=== PATIENT | male | born 1945 | race Caucasian/White ===

== ENCOUNTER 2018-08-06 14:15 | Emergency (ER) | payer OTHER ==
[2018-08-06 14:22] VITALS: BMI 27.8
[2018-08-06] MEDS ORDERED: SODIUM CHLORIDE 1,000 ML IV STA (15:44)
[2018-08-06] MEDS ORDERED: ACETAMINOPHEN 1000 MG/100 ML VIAL (NON FORMULARY) IVPB ONE (15:44)
[2018-08-06 16:14] LABS: BASO % 0.6 % (0-2.0); EOS % 1.1 % (0-4.5); HEMATOCRIT 40.9 % (35.4-49); HEMOGLOBIN 13.9 GM/dL (11.7-16.9); LYMPH % 29.9 % (8-40); MCH 32.2 pg (25.7-33.7); MEAN CELL VOLUME 94.6 fl (80-96); MONO % 9.5 % (3.8-10.2); NEUT % 58.9 % (42.8-82.8); PLATELET COUNT 148 K/MM3 (134-434); RBC 4.32 M/mm3 (4.00-5.60); RDW 12.8 % (11.9-15.9); WHITE BLOOD COUNT 5.1 K/mm3 (4.0-10.0)
[2018-08-06 16:27] LABS: INR 1.01 (0.83-1.09); PROTHROMBIN TIME (PATIENT) 11.9 SEC (9.7-13.0)
[2018-08-06 16:29] LABS: ACTIVATED PTT 27.8 SECONDS (25.2-36.5)
[2018-08-06 16:46] LABS: ALBUMIN 3.7 g/dl (3.4-5.0); ALK PHOS 61 U/L (45-117); ANION GAP 7 MMOL/L (8-16); BILIRUBIN,TOTAL 0.3 mg/dL (0.2-1); BLOOD UREA NITROGEN 21 mg/dL (7-18); CALCIUM 8.1 mg/dL (8.5-10.1); CHLORIDE 106 mmol/L (98-107); CO2 27 mmol/L (21-32); CREATININE 1.1 mg/dL (0.55-1.3); GLUCOSE,RANDOM 91 mg/dL (74-106); SGOT/AST 26 U/L (15-37); SGPT/ALT 23 U/L (13-61); SODIUM 139 mmol/L (136-145)
--- NOTE | 2018-08-06 16:49 | PDOC ---
History of Present Illness - General Chief Complaint: Pain Stated Complaint: ABD PAIN Time Seen by Provider: 08/06/18 15:16 History Source: Patient Exam Limitations: Language Barrier - History of Present Illness Initial Comments: 08/06/18 16:49 Pt is a 73yo M with no significant PMH presenting to ED for L inguinal hernia. Pt has had the hernia since 2001 but for the past 2 months it has been becoming increasingly painful. Pt also states that it has gotten bigger. 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 Pain is in the L groin and radiates up the abdomen and to the flanks. , has not taken anything for the pain. He denies n/v/d/c, fevers, chills, urinary symptoms, bloody stools, tarry stools. He had an inguinal hernia on the R side but it was repaired when he was still in [place]. Last BM this AM. Last ate breakfast this morning. PMD: none PSH: R inguinal hernia repair PMH: none Meds: none Allergies: nkda Social: denies Past History - Past Medical History Allergies/Adverse Reactions: Allergies Allergy/AdvReac Type Severity Reaction Status Date / Time No Known Allergies Allergy Verified 08/06/18 17:37 Home Medications: Ambulatory Orders NK [No Known Home Medication] 08/06/18 COPD: No GI Disorders: Yes (hernia) - Suicide/Smoking/Psychosocial Hx Smoking History: Never smoked Have you smoked in the past 12 months: No Information on smoking cessation initiated: No Hx Alcohol Use: No Drug/Substance Use Hx: No Review of Systems - Review of Systems Constitutional: No: See HPI, Chills, Fever, Malaise HEENTM: No: Symptoms Reported Respiratory: No: Symptoms reported Cardiac (ROS): No: Symptoms Reported ABD/GI: Yes: See HPI, Abdominal cramping. No: Constipated, Diarrhea, Nausea, Rectal Bleeding, Vomiting, Tarry Stools : Yes: See HPI, Flank Pain. No: Testicular Mass, Testicular Swelling, Testicular Pain Musculoskeletal: No: Back Pain, Joint Pain, Neck Pain Integumentary: No: Symptoms Reported Neurological: No: Symptoms reported *Physical Exam - Vital Signs Last Vital Signs Temp Pulse Resp BP Pulse Ox 98.3 F 73 17 172/86 H 99 08/06/18 14:19 08/06/18 14:19 08/06/18 14:19 08/06/18 14:19 08/06/18 14:19 - Physical Exam General Appearance: Yes: Nourished, Appropriately Dressed. No: Apparent Distress HEENT: positive: EOMI, BAILEY, Normal ENT Inspection Neck: positive: Trachea midline, Supple. negative: Lymphadenopathy (R), Lymphadenopathy (L) Respiratory/Chest: positive: Lungs Clear, Normal Breath Sounds. negative: Crackles, Wheezing Cardiovascular: positive: Regular Rhythm, Regular Rate, S1, S2. negative: Edema , JVD, Murmur Vascular Pulses: Carotid (R): 2+, Carotid (L): 2+, Dorsalis-Pedis (R): 2+, Doralis-Pedis (L): 2+ Gastrointestinal/Abdominal: positive: Normal Bowel Sounds, Flat, Soft, Tenderness, Hernia (L inguinal hernia. not reducable, firm. ttp, no overlying skin changes). negative: Pulsatile Mass, Guarding, Rebound Musculoskeletal: negative: CVA Tenderness, Vertebral Tenderness Extremity: positive: Normal Capillary Refill. negative: Pedal Edema, Swelling Integumentary: positive: Normal Color, Dry, Warm Neurologic: positive: barrer and tacker II-XII NML intact, Fully Oriented, Alert, Normal Mood/ Affect, Normal Response, Motor Strength 5/5 ED Treatment Course - LABORATORY CBC & Chemistry Diagram: 08/06/18 16:00 08/06/18 16:00 - ADDITIONAL ORDERS Additional order review: Laboratory Results 08/06/18 16:00 PT with INR 11.90 INR 1.01 PTT (Actin FS) 27.8 08/06/18 16:00 RBC 4.32 MCV 94.6 MCHC 34.0 RDW 12.8 MPV 8.0 Neutrophils % 58.9 Lymphocytes % 29.9 Monocytes % 9.5 Eosinophils % 1.1 Basophils % 0.6 - RADIOLOGY Radiology Studies Ordered: Category Date Time Status ABDOMEN & PELVIS CT WITH CONTR [CT] Stat CT Scan 08/06/18 15:46 Ordered Medical Decision Making - Medical Decision Making 08/06/18 16:56 Pt is a 73yo M with no significant PMH presenting to ED for L inguinal hernia. Pt has had the hernia since 2001 but for the past 2 months it has been becoming increasingly painful. Pt also states that it has gotten bigger. 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 Pain is in the L groin and radiates up the abdomen and to the flanks. , has not taken anything for the pain. He denies n/v/d/c, fevers, chills, urinary symptoms, bloody stools, tarry stools. He had an inguinal hernia on the R side but it was repaired when he was still in [place]. Vitals: wnl PE: L inguinal hernia, firm, not reducable, no overlying skin changes, ttp. LLQ abdominal tenderness. ddx includes but not limited to incarcerated hernia, strangulated hernia, scrotal mass, abscess, infectious process. -labs, lactic, UA -CT -IV tylneol, fluids 08/06/18 19:00 CT: L inguinal hernia containing portion of sigmoid colon without evidence of obstruction. Prostate enlargement Called Dr. Bernal, can be scheduled outpt surgery. Pt stable for dc home. given surgery f/u and return precautions. *DC/Admit/Observation/Transfer Diagnosis at time of Disposition: Inguinal hernia Qualifiers: Obstruction and gangrene presence: without obstruction or gangrene Laterality: unilateral Recurrence: not specified as recurrent Qualified Code(s): K40.90 - Unilateral inguinal hernia, without obstruction or gangrene, not specified as recurrent - Discharge Dispostion Disposition: HOME Condition at time of disposition: Good Decision to Admit order: No - Referrals Referrals: Filippo Bernal MD [Staff Physician] - - Patient Instructions Printed Discharge Instructions: DI for Groin Hernia Additional Instructions: Hoy te atendieron en la marcin de emergencias para maryuri evaluacin de maryuri hernia. No est atascado y no parece estar infectado. Necesita hacer maryuri deysi con un cirujano para que pueda repararlo. Puede llamar al Dr. Bernal . Puede andres Tylenol o ibuprofeno para el dolor segn sea necesario. Regrese a la marcin de emergencias si el dolor empeora, comienza a vomitar, no tiene movimientos intestinales, nota que la piel cambia de color sobre la hernia o si aparece algn sntoma nuevo. Adalid You were seen in the emergency room today for evaluation of a hernia. It is not stuck and does not appear infected. You need to make an appointment with a surgeon so that you can get this repaired. You can call Dr. Bernal . You can take Tylenol or ibuprofen for the pain as needed. Come back to the emergency room if pain gets worse, you start vomiting, you do not have any bowel movements, you notice the skin changing color over the hernia or if any new concerning symptom develops. Thank you Print Language: BARBADIAN - Post Discharge Activity
--- NOTE | 2018-08-06 16:54 | PDOC ---
Attending Attestation - Resident Resident Name: Roslyn Florez - ED Attending Attestation I have performed the following: I have examined & evaluated the patient, The case was reviewed & discussed with the resident, I agree w/resident's findings & plan - HPI HPI: 08/06/18 16:54 73 YOM with h/o inguinal hernia on right s/p repair presenting with left groin pain and increasing bulge x 2 months. he admits to lifting at work, no trauma. no urinary sx, no n/v/d, f/c. - Physicial Exam PE: 08/06/18 16:53 NAD, well appearing, nl conjunctiva, anicteric; neck supple. lungs clear, RRR, abdomen soft +LLQ tenderness, Left groin with palp inguinal hernia bulge, nonreproducible, +TTP and no overlying skin changes or discoloration, LYONS x4, no focal neuro deficits. No peripheral edema. normal color for ethnicity, WWP. - Medical Decision Making 08/06/18 16:55 hpi as documented VS reviewed, wnl basic labs and lytes wnl. lactic normal, reassuring, less likely ischemic/hypoperfused CT a/p to eval for strangulated and symptomatic inguinal hernia, not incarcerated as no skin discoloration no PO contrast, as BMI appropriate, no bowel altering surgeries and IV contrast sufficient. s/o to Dr Chacon pending imaging results, and ultimate dispo +/- surg cs. 08/06/18 17:07
[2018-08-06 17:41] VITALS: PULSE 67; TEMP 97.6
[2018-08-06 19:57] LABS: EPI CELLS 0.1 /HPF (0-5); URINE APPEARANCE CLEAR; URINE BACTERIA 0 /hpf (NEGATIVE); URINE BILIRUBIN NEGATIVE (NEGATIVE); URINE CASTS 0 /hpf (0-8); URINE COLOR YELLOW; URINE GLUCOSE (UA) NEGATIVE (NEGATIVE); URINE KETONE NEGATIVE (NEGATIVE); URINE LEUK ESTERASE NEGATIVE (NEGATIVE); URINE NITRITE NEGATIVE (NEGATIVE); URINE PROTEIN NEGATIVE (NEGATIVE); URINE RBC 4 /hpf (0-4); URINE UROBILINOGEN 0.2 mg/dL (0.2-1.0); URINE WBC 0 /hpf (0-5)
[2018-08-06] MEDS ORDERED: amLODIPine BESYLATE 5 MG TABLET (FP) PO ONE (21:17)
[2018-08-06] MEDS ORDERED: amLODIPine BESYLATE 5 MG TABLET (FP) ONE (21:30)
[2018-08-07 00:45] VITALS: BP 178/105
== END 2018-08-06 21:56 | disposition home or self-care (01) ==
LOC: JER 14:15
PROC: 3E033NZ Introduction of Analgesics, Hypnotics, Sedatives into Peripheral Vein, Percutaneous Approach (ICD-10-PCS; principal; 2018-08-06)
DX: K40.90 Unilateral inguinal hernia, without obstruction or gangrene, not specified as recurrent (principal); N40.0 Benign prostatic hyperplasia without lower urinary tract symptoms
CPT/HCPCS: 36415; 74177-TC; 80053; 81003; 83605; 85025; 85610; 85730; 86850; 86900; 86901; 96374; 99282-25; J0131; J7030